=== PATIENT | female | born 2000 | race Two or more races ===

== ENCOUNTER 2025-01-31 10:58 | Day surgery (SDC) | payer BC ==
[~2025-01-31] VITALS: Ht 154.9 cm; Wt 90.1 kg
[~2025-01-31 10:58] MED LIST: ACETAMINOPHEN 1000MG/100ML IV BAG As Ordered ONE; KETOROLAC 30 MG/ML 1 ML VIAL As Ordered ONE; LIDOCAINE 2% 100 MG/5 ML SDV (FOR ANES.) As Ordered ONE; MIDAZOLAM INJ 2 MG/2 ML VIAL As Ordered ONE; ONDANSETRON 4MG 2ML VIAL As Ordered ONE; ROCURONIUM BROMIDE 50MG/5ML VIAL As Ordered ONE; SUGAMMADEX SODIUM 500 MG/5 ML VIAL As Ordered ONE; dexAMETHasone 4 MG/ML 1 ML VIAL As Ordered ONE
[2025-01-31] MEDS ORDERED: LR 1,000 ML IV SCH ×2 (11:55→13:10)
[2025-01-31] MEDS: INDOCYANINE GREEN 25 MG VIAL IV ONE (11:55)
[2025-01-31] MEDS: HEPARIN SOD 5000 UNITS/ML 1 ML VIAL/SYRINGE SQ ONE (12:20)
[2025-01-31] MEDS: ceFAZolin SOD 2 GM IV ONCE IV ONE (12:20)
[2025-01-31] MEDS ORDERED: PHENYLephrine 500MCG 5ML (100MCG/ML) SYRINGE As Ordered ONE (12:46)
[2025-01-31] MEDS ORDERED: GLYCOPYRROLATE INJ 0.2 MG/ML 2 ML VIAL As Ordered ONE (12:56)
[2025-01-31] MEDS ORDERED: HYDROMORPHONE HCL 0.5 MG/0.5 ML SYRINGE IV PRN (13:10)
[2025-01-31] MEDS: ONDANSETRON 4MG 2ML VIAL IV PRN (13:27)
[2025-01-31 17:05] VITALS: BP 121/79; TEMP 98.4; O2SAT 94
== END 2025-01-31 17:10 | disposition home or self-care (01) ==
LOC: M SDC 10:58
PROVIDERS: ATTEND Surgery
DX: K80.10 Calculus of gallbladder with chronic cholecystitis without obstruction (principal)
CPT/HCPCS: 47562; 81025; 88304; J0131; J0665; J0690; J1100; J1596; J1885; J2250; J2371; J2405; J2765; J3010; Q9968; S2900